=== PATIENT | male | born 1955 | race Caucasian/White ===

== ENCOUNTER 2018-06-25 06:42 | Observation (INO) ==
--- NOTE | 2018-06-25 06:53 | Emergency Department Note ---
Disposition Clinical Impression: ACS (acute coronary syndrome) Disposition: Admitted As Inpatient Chest Pain HPI - General Chief Complaint: ED Chest Pain Stated Complaint: chest pain Time Seen by Provider: 06/25/18 06:45 Source: patient Mode of arrival: ambulatory Limitations: no limitations Vital Signs Reviewed: Yes Nursing Notes Reviewed: Yes - History of Present Illness HPI Narrative: 62-year-old male presents with the chest pain. Patient stated the pain started at midnight (6.5 hours ago). It was a constant sharp aching in right side of chest. Associate with nausea and shortness breath. Patient stated that nausea is a resolved. He was given 4 baby aspirin when ambulance came. Pt had stress test a few years. No cardiac cath, no stents. Report back surgery two years ago. He was found blood clot in epidural space. Pt complaint: chest pain Onset (ago): hour(s) (6) Duration: constant Onset: during rest Pain Location: right chest - Related Data Home Medications Medication Instructions Recorded Confirmed Atorvastatin [Lipitor] 5 mg PO HS 06/25/18 06/25/18 Gabapentin [Gralise] 300 mg PO TID 06/25/18 06/25/18 Insulin Glargine [Lantus] 30 units SQ DAILY 06/25/18 06/25/18 Insulin Regular Human [Humulin R] 30 units SQ BID 06/25/18 06/25/18 Lisinopril [Zestril] 30 mg PO DAILY 06/25/18 06/25/18 Omeprazole [PriLOSEC] 20 mg PO BID 06/25/18 06/25/18 Allergies Allergy/AdvReac Type Severity Reaction Status Date / Time Penicillins Allergy Rash Verified 06/25/18 06:47 Constitutional: Denies: fever, chills Eyes: Denies: eye pain ENT ED: Denies: ear pain Cardiovascular: Reports: chest pain Respiratory: Denies: cough Gastrointestinal: Reports: nausea. Denies: abdominal pain Genitourinary: Denies: urgency Musculoskeletal: Denies: back pain Integumentary: Denies: rash Neurological: Denies: headache Psychiatric: Denies: anxiety Endocrine: Denies: fatigue Hematological/Lymphatic: Denies: easy bleeding Allergic/Immunologic: Denies: facial swelling Physical Exam - General Limitations: no limitations General appearance: alert - Head Head exam: atraumatic - Eye Eye exam: Present: normal appearance - ENT ENT exam: normal exam - Neck Neck exam: Present: normal inspection - Chest Chest inspection: Present: normal inspection - Respiratory Respiratory exam: Present: normal lung sounds bilaterally - Cardiovascular Cardiovascular exam: Present: regular rate - Abdominal Exam Abdominal exam: Present: soft, tenderness Abdominal tenderness: Present: epigastrium - Extremities Exam Extremities exam: Present: normal inspection, full ROM. Absent: tenderness - Back Exam Back exam: Present: normal inspection, full ROM. Absent: tenderness - Neurological Exam Neurological exam: Present: alert, oriented X3 - Psychiatric Psychiatric exam: Present: normal affect, normal mood - Skin Skin exam: Present: warm, intact Course Vital Signs O2 Sat by Pulse Oximetry 100 06/25/18 06:49 Temperature 98.6 F 06/25/18 10:32 Pulse Rate 81 06/25/18 10:32 Respiratory Rate 16 06/25/18 10:32 Blood Pressure 132/77 06/25/18 10:32 O2 Sat by Pulse Oximetry 98 06/25/18 10:32 Oxygen Delivery Oxygen Delivery Room Air Chest Pain - [facility] Narrative Medical decision making narrative: 62 year old male with history of hypertension and diabetes. Presents with sudden onset chest pain since 12 am this morning. Pt described it as constant sharp and pressure type pain in right side chest. associate with nausea and shortness of breath. No vomiting. No cough. No chills and fever. History of GERD, back surgery and "blood clot in epidural area". Not on blood thinner. Pt took 4 baby ASA this morning. Reported improved nausea. EKG mild elevation ST in V2, no old EKG. chest xray: no acute change. negative D-dimer and troponin. Pt's Heart score is 4. Pt will be admitted to hospital for observation. Spoke with Refractive Surgeon Dr. Galdamez. He is notified the consult for this patient. Chest X-Ray 06/25/18 06:46 IMPRESSION: No acute process. D/ / Mohamud Truong MD / Mohamud Truong MD Interpreting Provider: Mohamud Truong MD 0719 hours: He said no chest pain against regular nitroglycerin trial he had his baby aspirin earlier. Still waiting on old EKG from [place]. 0830 hrs.: D-dimer is normal limits of 10 times his age. He did not get any change with the nitroglycerin, giving him morphine for pain and admit. - Lab Data Lab results reviewed: Yes I reviewed the patient's lab results. Result diagrams: 06/25/18 06:54 06/25/18 06:54 Lab Results 06/25/18 06/25/18 06/25/18 Range/Units 06:54 06:54 06:54 WBC 12.5 H (4.3-11.1) K/mcL RBC 4.62 (4.19-5.50) M/mcL Hgb 14.1 (12.9-16.9) g/dL Hct 42.8 (37.5-50.1) % MCV 92.6 (83.0-100.0) fL MCH 30.5 (28.0-33.3) pg MCHC 32.9 (31.6-35.5) g/dL RDW 13.5 (11.5-14.5) % Plt Count 211 (140-400) K/mcL MPV 10.0 (9.4-12.4) fL Immature Gran % 0.4 (0-4) % Seg Neutrophils % 79.3 % Lymphocytes % 12.8 % Monocytes % 5.0 % Eosinophils % 2.1 % Basophils % 0.4 % Neutrophils # 10.0 H (1.6-8.9) K/mcL Lymphocytes # 1.6 (0.6-4.6) K/mcL Monocytes # 0.6 (0.0-1.3) K/mcL Eosinophils # 0.3 (0.0-0.6) K/mcL Basophils # 0.1 (0.0-0.2) K/mcL D-Dimer (0-500) ng/mLFEU Sodium 139 (136-145) mEq/L Potassium 4.1 (3.5-5.1) mEq/L Chloride 102 (98-107) mEq/L Carbon Dioxide 27 (23-29) mEq/L BUN 24 H (8-23) mg/dL Creatinine 1.42 H (0.70-1.30) mg/dL Est GFR ( Amer) > 60 (> 60) Est GFR (Non-Af Amer) 50 L (> 60) BUN/Creatinine Ratio 17 (6-26) Glucose 134 H (70-105) mg/dL Calculated Osmolality 294 (280-300) Calcium 9.4 (8.6-10.3) mg/dL Total Bilirubin 0.6 (0.3-1.0) mg/dL AST 20 (13-39) Units/L ALT 24 (7-52) Units/L Alkaline Phosphatase 82 (34-104) Units/L Troponin I < 0.03 (< 0.04) ng/mL Serum Total Protein 7.5 (6.4-8.9) g/dL Albumin 4.4 (3.5-5.7) g/dL Globulin 3.1 (2.4-3.5) g/dL Albumin/Globulin Ratio 1.4 (1.1-2.2) Lipase 7 L (11-82) Units/L Urine Osmolality (300-1090) mOsm/kg 06/25/18 06/25/18 Range/Units 06:56 09:04 WBC (4.3-11.1) K/mcL RBC (4.19-5.50) M/mcL Hgb (12.9-16.9) g/dL Hct (37.5-50.1) % MCV (83.0-100.0) fL MCH (28.0-33.3) pg MCHC (31.6-35.5) g/dL RDW (11.5-14.5) % Plt Count (140-400) K/mcL MPV (9.4-12.4) fL Immature Gran % (0-4) % Seg Neutrophils % % Lymphocytes % % Monocytes % % Eosinophils % % Basophils % % Neutrophils # (1.6-8.9) K/mcL Lymphocytes # (0.6-4.6) K/mcL Monocytes # (0.0-1.3) K/mcL Eosinophils # (0.0-0.6) K/mcL Basophils # (0.0-0.2) K/mcL D-Dimer 406 (0-500) ng/mLFEU Sodium (136-145) mEq/L Potassium (3.5-5.1) mEq/L Chloride (98-107) mEq/L Carbon Dioxide (23-29) mEq/L BUN (8-23) mg/dL Creatinine (0.70-1.30) mg/dL Est GFR ( Amer) (> 60) Est GFR (Non-Af Amer) (> 60) BUN/Creatinine Ratio (6-26) Glucose (70-105) mg/dL Calculated Osmolality (280-300) Calcium (8.6-10.3) mg/dL Total Bilirubin (0.3-1.0) mg/dL AST (13-39) Units/L ALT (7-52) Units/L Alkaline Phosphatase (34-104) Units/L Troponin I (< 0.04) ng/mL Serum Total Protein (6.4-8.9) g/dL Albumin (3.5-5.7) g/dL Globulin (2.4-3.5) g/dL Albumin/Globulin Ratio (1.1-2.2) Lipase (11-82) Units/L Urine Osmolality 791 (300-1090) mOsm/kg - Radiology Data Radiology results reviewed: Yes I reviewed the patient's radiology results. HISTORY: ORDERING SYSTEM PROVIDED HISTORY: chest pain Initial exam FINDINGS: The lungs are without acute focal process. There is no effusion or pneumothorax. The cardiomediastinal silhouette is without acute process. The osseous structures are without acute process. XR/XR chest 2V IMPRESSION: No acute process. D/ / Mohamud Truong MD / Mohamud Truong MD Interpreting Provider: Mohamud Truong MD Attestation Statement - Attestation Attestation: This documentation is done with the assistance of Dragon dictation. Despite efforts made to ensure accuracy, there may be inaccuracies in multimedia artist or spelling and typographical errors. I have personally performed a face to face evaluation on this patient. I have reviewed and agree with the care plan. History and Exam by me shows: Patient seen and evaluated today presents from the urgent care they were closely came here had chest pain for little over 6 hours. Pressure sensation, at this point. No EKG to compare to here [facility] chest x-ray cardiac workup pain-free at this time and reassess. Had 4 baby aspirin this morning.
[2018-06-25 07:07] LABS: Basophils # 0.1 K/mcL (0.0-0.2); Basophils % 0.4 %; Eosinophils # 0.3 K/mcL (0.0-0.6); Eosinophils % 2.1 %; Hematocrit 42.8 % (37.5-50.1); Hemoglobin 14.1 g/dL (12.9-16.9); Immature Granulocytes % 0.4 % (0-4); Lymphocytes # 1.6 K/mcL (0.6-4.6); Lymphocytes % 12.8 %; Mean Corpuscular HGB Conc 32.9 g/dL (31.6-35.5); Mean Corpuscular Hemoglobin 30.5 pg (28.0-33.3); Mean Corpuscular Volume 92.6 fL (83.0-100.0); Monocytes # 0.6 K/mcL (0.0-1.3); Platelet Count 211 K/mcL (140-400); Red Blood Count 4.62 M/mcL (4.19-5.50); Red Cell Distribution Width 13.5 % (11.5-14.5); Segmented Neutrophils % 79.3 %
[2018-06-25 07:27] LABS: Alanine Aminotransferase 24 Units/L (7-52); Albumin 4.4 g/dL (3.5-5.7); Albumin/Globulin Ratio 1.4 (1.1-2.2); Alkaline Phosphatase 82 Units/L (34-104); Aspartate Amino Transferase 20 Units/L (13-39); BUN/Creatinine Ratio 17 (6-26); Bilirubin,Total 0.6 mg/dL (0.3-1.0); Blood Urea Nitrogen 24 mg/dL (8-23); Calcium 9.4 mg/dL (8.6-10.3); Carbon Dioxide 27 mEq/L (23-29); Chloride 102 mEq/L (98-107); Globulin 3.1 g/dL (2.4-3.5); Glucose 134 mg/dL (70-105); Osmolality,Calculated 294 (280-300); Potassium 4.1 mEq/L (3.5-5.1); Sodium 139 mEq/L (136-145); Total Protein 7.5 g/dL (6.4-8.9); Troponin I < 0.03 ng/mL (< 0.04); eGFR For Non-African Americans 50 (> 60)
[2018-06-25] MEDS ORDERED: Nitroglycerin 0.4 MG TAB.SUBL SL PRN (07:30)
[2018-06-25] MEDS: 0.9 % Sodium Chloride 1,000 ML IVC SCH ×2 (07:47→18:26)
[2018-06-25] MEDS ORDERED: Pantoprazole 40 MG VIAL IVP ONE (08:18)
[2018-06-25] MEDS ORDERED: GI Cocktail 40 ML EACH PO ONE (08:23)
[2018-06-25] MEDS ORDERED: *HR* Morphine 2 MG/ML SYRINGE IVP PRN (08:36)
[2018-06-25] MEDS ORDERED: Naloxone 0.4 MG/ML INJ IVP PRN (09:01)
--- NOTE | 2018-06-25 09:11 | Internal Med History&Physical ---
Date of Encounter: 06/25/18 Time of Encounter: 09:07 Internal Medicine - H&P: HPI Chief complaint: chest pain Admitted From: Home Plans for Post Hospital Care: Home History of present illness: Mr. Ochoa is a 62 year old male with history of diabetes and hypertension presented to the emergency department with complaint of chest pain. As per patient his chest pain started at midnight and woke him up from sleep. He characterizes the pain as constant, sharp, nonradiating, 7 out of 10 pain located in the middle of his chest. Pain is aggravated by deep breathing and exertion along with movement, denies pain on palpation. Never had pain like this before. He is extremely active and is currently building a house, denies any heavy lifting or recent chest trauma. Has had no recent upper respiratory tract infections, denies orthopnea or PND, has had no leg swelling or calf tenderness, or sick contacts. Chest pain is not associated with diaphoresis or fever or chills. However he does complain of mild nausea. He denies shortness of breath however he feels as though his breathing is shallow due to chest pain on deep inspiration. He denies prolonged immobilization, no history of cancers, no prolonged travel recently. Denies any cardiac history has never had a cardiac catheter nor stents placed. Had did have a stress test at the [facility] in [place] however reports that the results were negative. He does not take aspirin every day however does report compliance to rest of his medication. He moved from [place] last June and has not had any medical problems so he has not followed up with any doctors. Does report that he does have kidney insufficiency however is unsure as to how bad. He reports that his kidney insufficiency occurred after he had ureteral torsion a few years ago that required extensive surgery. He received 4 baby aspirins in the ambulance and reports that his nausea has resolved since then. While in the emergency department EKG showed normal sinus rhythm, left axis deviation, with questionable ST-T changes in the anterolateral leads so he was endorsed for admission for further evaluation of his chest pain. Past Med Surg Social Fam HX - Past Medical History Medical history: diabetes, hypertension, renal disease Psychiatric history: no psych history - Past Surgical History Additional surgical history: right ureteral revision. discectomy neck. laminectomy back w/complications and blood clot next to spine - Social History Smoking Status: Never smoker Smokeless Tobacco Status: No Alcohol use: none Drug use: none Internal Medicine - H&P: Meds Atorvastatin [Lipitor] 5 mg PO HS 06/25/18 [History] Gabapentin [Gralise] 300 mg PO TID 06/25/18 [History] Insulin Glargine [Lantus] 30 units SQ DAILY 06/25/18 [History] Insulin Regular Human [Humulin R] 30 units SQ BID 06/25/18 [History] Lisinopril [Zestril] 30 mg PO DAILY 06/25/18 [History] Omeprazole [PriLOSEC] 20 mg PO BID 06/25/18 [History] Allergy/AdvReac Type Severity Reaction Status Date / Time Penicillins Allergy Rash Verified 06/25/18 06:47 All Systems PM: A 10-system review of systems was performed and is negative for pertinent findings except as documented above in the HPI. - Constitutional Vitals: Temp Pulse Resp BP Pulse Ox 98.7 F 82 18 130/77 96 06/25/18 06:51 06/25/18 08:00 06/25/18 08:00 06/25/18 08:00 06/25/18 08:00 Exam: General: Patient is alert, oriented, no acute distress, obese, speaks in full sentences Head: atraumatic, normocephalic, Eye: normal appearance, PERRL, no scleral icterus, no conjunctival injection ENT: mucous membranes moist, normal external ear exam Neck: normal inspection, trachea midline, full ROM, no carotid bruits Chest: normal inspection, symmetric chest rise Respiratory: Distant breath sounds secondary to body habitus Good respiratory effort. Bilateral breath sounds are clear without wheezing, crackles, or rhonchi. Cardiovascular: Distant heart sounds secondary to body habitus Regular rate and rhythm. s1 and s2 No clicks, rubs, gallops, or murmors. Abdomen: Bowel sounds present normoactive x-4 quadrants. Abdomen is soft, nondistended. no Epigastric tenderness. No guarding or rebound. No organomegaly noted, obese musculoskeletal: Spontaneously moving all extremities. no edema, no calf tenderness, no calf discoloration Skin: warm, dry, intact. Neuro: Alert and oriented x 3 no focal deficit Psych: Patient's affect is normal Internal Med - H&P Results - Labs CBC & Chem 7: 06/25/18 06:54 06/25/18 06:54 Labs: Short CBC 06/25/18 Range/Units 06:54 WBC 12.5 H (4.3-11.1) K/mcL Hgb 14.1 (12.9-16.9) g/dL Hct 42.8 (37.5-50.1) % Plt Count 211 (140-400) K/mcL Neutrophils # 10.0 H (1.6-8.9) K/mcL BMP 06/25/18 06:54 Sodium 139 Potassium 4.1 Chloride 102 Carbon Dioxide 27 BUN 24 H Creatinine 1.42 H Glucose 134 H Calcium 9.4 Cardiac Enzymes 06/25/18 Range/Units 06:54 Troponin I < 0.03 (< 0.04) ng/mL Liver Function 06/25/18 Range/Units 06:54 Total Bilirubin 0.6 (0.3-1.0) mg/dL AST 20 (13-39) Units/L ALT 24 (7-52) Units/L Alkaline Phosphatase 82 (34-104) Units/L Albumin 4.4 (3.5-5.7) g/dL - EKG Data -: EKG Interpreted by Myself EKG shows normal: sinus rhythm (Left axis deviation, nonspecific ST-T changes in the anterolateral leads) - EKG Data Prior EKG available for review: no - Impressions ITS Impressions Chest X-Ray 06/25/18 06:46 IMPRESSION: No acute process. D/ / Mohamud Truong MD / Mohamud Truong MD Interpreting Provider: Mohamud Truong MD - Assessment and Plan (1) Chest pain, rule out acute myocardial infarction Current Visit: Yes Status: Acute Assessment and plan: Chest pain rule out ACS Doubt PE, d-dimer is negative, Wells criteria 0, not tachycardic, tachypnic or hypoxic telemetry Follow serial troponin/CK-MB/EKG q6h Transthoracic echocardiograph to identify regional wall motion abnormalities and assess LV function cardiology was consulted in the ED will follow recommendations. NPO for possible Stress test/LHC [facility] was [facility] with [facility] continue with ASA 81 mg daily NTG Q5M PRN for chest pain Coreg 3.125 twice a day Continue with statins lipid panel pain control with IV morphine as needed (2) ARF (acute renal failure) Current Visit: Yes Status: Acute Assessment and plan: Creatinine 1.4 no baseline [facility]bt[facility] Renal ultrasound UA, urine electrolytes and urine osmolality Avoid nephrotoxic medications Hold lisinopril for now Continue with gentle hydration Strict intake and output Qualifiers: Acute renal failure type: unspecified Qualified Code(s): N17.9 - Acute kidney failure, unspecified (3) Leukocytosis Current Visit: Yes Status: Acute Assessment and plan: Cytosis of 12.5 Chest x-ray without any acute process UA is pending Currently does not meet any SIRS criteria so will hold off antibiotics and follow pending labs If the patient develops sirs criteria we will consider antibiotics. Qualifiers: Leukocytosis type: unspecified Qualified Code(s): D72.829 - Elevated white blood cell count, unspecified (4) Obesity (BMI 35.0-39.9 without comorbidity) Current Visit: Yes Status: Acute Assessment and plan: Was counseled on nutrition (5) IDDM (insulin dependent diabetes mellitus) Current Visit: Yes Status: Acute Assessment and plan: Continuous home long-acting insulin Sliding-scale and adjust as per fingersticks A1c (6) DVT prophylaxis Current Visit: Yes Status: Acute Assessment and plan: Heparin subcutaneous - Time Spent With Patient Total time spent is greater than 50% in coordination of care (as documented) at patient's floor/unit and/or counseling patient:
[2018-06-25] MEDS ORDERED: Dextrose Gel 15 GM/37.5 ML TUBE PO PRN ×2 (09:53)
[2018-06-25] MEDS ORDERED: D5% in Water 1,000 ML IVC PRN (09:53)
[2018-06-25] MEDS ORDERED: *HR* Dextrose 50 % in Water (Syg) 50 ML SYRINGE IVP PRN (09:53)
[2018-06-25 11:11] LABS: Chloride,Urine 199 mEq/L; Potassium,Urine 73.6 mEq/L; Sodium, Urine 161.4 mEq/L
[2018-06-25 11:13] LABS: Amphetamine Screen,Urine Negative ng/mL (Cutoff=1000); Barbiturate Screen,Urine Negative ng/mL (Cutoff=200); Benzodiazepines Screen,Urine Negative ng/mL (Cutoff=200); Cannabinoid Screen,Urine Negative ng/mL (Cutoff = 50); Cocaine Screen,Urine Negative ng/mL (Cutoff= 300); Opiate Screen,Urine Positive ng/mL (Cutoff=300); Phencyclidine Screen,Urine Negative ng/mL (Cutoff=25)
[2018-06-25] MEDS: *HR* Morphine 2 MG/ML SYRINGE IVP PRN ×2 (13:59→20:46)
[2018-06-25] MEDS: *HR* Heparin 5,000 UNIT/ML VIAL SQ SCH ×2 (14:01→20:47)
[2018-06-25] MEDS: Insulin LISPRO 300 UNITS/3 ML VIAL SQ SCH ×2 (14:02→18:29)
[2018-06-25] MEDS: Gabapentin 300 MG CAPSULE PO SCH ×2 (14:02→20:48)
[2018-06-25] MEDS: Aspirin 81 MG TAB.CHEW PO SCH (14:02)
[2018-06-25] MEDS ORDERED: Perflutren Lipid Microsphere 1.3 ML in 0.9 % Sodium Chloride 8.7 ML IVP ONE (17:18)
--- NOTE | 2018-06-25 17:21 | Cardiology Consult Note ---
Date of Encounter: 06/25/18 Time of Encounter: 14:13 Assessment and Plan (1) Chest pain Current Visit: Yes Status: Acute clinically non-anginal or atypical, neg trop so far, no ischemic changes on current ECG - repeat ECG, one more trop - pending TTE for EF and RWMA - if dynamic ECG changes, consider inpatient stress test Qualifiers: Chest pain type: other chest pain Qualified Code(s): R07.89 - Other chest pain; R07.8 - Other chest pain (2) HTN (hypertension) Current Visit: Yes Status: Acute mild fluctuation. mgn per primary team. Qualifiers: Hypertension type: essential hypertension Qualified Code(s): I10 - Essential (primary) hypertension (3) IDDM (insulin dependent diabetes mellitus) Current Visit: Yes Status: Acute (4) Elevated serum creatinine Current Visit: Yes Status: Acute unclear ARNOL or CKD. repeat BMP am Discussion w patient/family: The assessment and plan as outlined above was discussed with the patient and/or family members who expressed understanding and agreement. All questions were answered. Thank you for involving us in the care of your patient. Please call with any questions. History of Present Illness Consult date: 06/25/18 Requesting physician: Cici Cagle Consult reason: cp Chief complaint: cp History of present illness: Mr. Ochoa is a 62 year old male ho HTN, DM, ?CKD. Consulted for cp. Acute onset of right sided sharp chest pain "under rib cage" since last night at rest (>12 hrs), moderate to severe, no radiation, constant, worsened by deep breath or upper body movement with short-lived dyspnea, not relieved by ASA or NTG, partial relief by morphine. No dizziness, palpitations. No prior episode. No ho angina on exertion. *In the middle of [employer] building house. ECG SR, LAD, late RWP, NS ST changes. Trop neg x2, DDimer wnl, Cr 1.4, WBC 12 Past Med Surg Social Fam HX - Past Medical History Medical history: diabetes, hypertension, renal disease Psychiatric history: no psych history - Past Surgical History Additional surgical history: right ureteral revision. discectomy neck. laminectomy back w/complications and blood clot next to spine - Social History Smoking Status: Never smoker Smokeless Tobacco Status: No Alcohol use: none Drug use: none - Family History Father Age at : 60 Cause of : mi - Additional Family History Additional family history: non-contributory Medications and Allergies Atorvastatin [Lipitor] 5 mg PO HS 06/25/18 [History] Gabapentin [Gralise] 300 mg PO TID 06/25/18 [History] Insulin Glargine [Lantus] 30 units SQ DAILY 06/25/18 [History] Insulin Regular Human [Humulin R] 30 units SQ BID 06/25/18 [History] Omeprazole [PriLOSEC] 20 mg PO BID 06/25/18 [History] RX: Lisinopril [Zestril] 30 mg PO DAILY 06/25/18 [History] Allergy/AdvReac Type Severity Reaction Status Date / Time Penicillins Allergy Rash Verified 06/25/18 06:47 All Systems Review: The remainder of the systems were reviewed and are negative - Cardiovascular Cardiovascular: as per HPI - Hematological/Lymphatic Hematologic/Lymphatic: no easy bleeding Physical Examination Other: General: NAD, AAO, cogent HEENT: anicteric Neck: no JVD, no bruits Chest: CTA B/L, no W/R/C, vague R-mid chest wall tenderness Heart: RR, S1/S2, no S3/S4, no M/G/R Abdominal: BS +, soft, ND, NT Peripheral Pulses: radial pulse 2+ B/L, DP 2+ B/L Skin/Extremities: no cyanosis, no LE edema Neurological: grossly non-focal. Results 06/25/18 06:54 06/25/18 06:54 Lab Results 06/25/18 06/25/18 06/25/18 06:54 06:54 06:54 WBC 12.5 H Hgb 14.1 Hct 42.8 Plt Count 211 D-Dimer Sodium 139 Potassium 4.1 Chloride 102 Carbon Dioxide 27 BUN 24 H Creatinine 1.42 H Glucose 134 H Calcium 9.4 Total Bilirubin 0.6 AST 20 ALT 24 Alkaline Phosphatase 82 Troponin I < 0.03 Lipase 7 L 06/25/18 06/25/18 06:56 12:53 WBC Hgb Hct Plt Count D-Dimer 406 Sodium Potassium Chloride Carbon Dioxide BUN Creatinine Glucose Calcium Total Bilirubin AST ALT Alkaline Phosphatase Troponin I < 0.03 Lipase - Imaging and Cardiology Chest Xray: report reviewed Other Results: Tele reviewed, no events - EKG Interpretation EKG results cardiology: personally reviewed Consult Discharge Plan - Plan [facility]: [facility]Primary Care Provider[facility] -
[2018-06-25] MEDS ORDERED: Insulin LISPRO 300 UNITS/3 ML VIAL SQ SCH (21:00)
[2018-06-25] MEDS ORDERED: 0.9 % Sodium Chloride 1,000 ML IVC SCH (22:00)
[2018-06-26 05:13] LABS: Basophils % 0.3 %; Eosinophils # 0.2 K/mcL (0.0-0.6); Eosinophils % 2.8 %; Hematocrit 38.7 % (37.5-50.1); Hemoglobin 12.6 g/dL (12.9-16.9); Immature Granulocytes % 0.3 % (0-4); Lymphocytes # 1.8 K/mcL (0.6-4.6); Lymphocytes % 26.5 %; Mean Corpuscular HGB Conc 32.6 g/dL (31.6-35.5); Mean Corpuscular Hemoglobin 30.7 pg (28.0-33.3); Mean Corpuscular Volume 94.2 fL (83.0-100.0); Mean Platelet Volume 10.3 fL (9.4-12.4); Monocytes # 0.4 K/mcL (0.0-1.3); Monocytes % 5.8 %; Neutrophils # 4.4 K/mcL (1.6-8.9); Platelet Count 178 K/mcL (140-400); Red Blood Count 4.11 M/mcL (4.19-5.50); Red Cell Distribution Width 13.6 % (11.5-14.5); Segmented Neutrophils % 64.3 %
[2018-06-26] MEDS: *HR* Heparin 5,000 UNIT/ML VIAL SQ SCH (05:16)
[2018-06-26 05:41] LABS: BUN/Creatinine Ratio 16 (6-26); Blood Urea Nitrogen 22 mg/dL (8-23); Calcium 8.3 mg/dL (8.6-10.3); Carbon Dioxide 24 mEq/L (23-29); Chloride 104 mEq/L (98-107); Cholesterol 124 mg/dL (< 200); Glucose 207 mg/dL (70-105); HDL Cholesterol 42 mg/dL (40-59); LDL Cholesterol,Calculated 64 mg/dL (0-99); Osmolality,Calculated 287 (280-300); Potassium 4.1 mEq/L (3.5-5.1); Sodium 134 mEq/L (136-145); Triglycerides 91 mg/dL (< 150); eGFR For Non-African Americans 54 (> 60)
[2018-06-26 05:46] LABS: Thyroid Stimulating Hormone 0.896 mcIU/mL (0.340-5.600)
[2018-06-26] MEDS ORDERED: Insulin DETEMIR 100 UNIT/ML X5UNITS SQ SCH ×2 (09:00→09:45)
[2018-06-26] MEDS: Insulin LISPRO 300 UNITS/3 ML VIAL SQ SCH ×2 (09:11→12:05)
[2018-06-26] MEDS: Gabapentin 300 MG CAPSULE PO SCH (09:40)
[2018-06-26] MEDS: Aspirin 81 MG TAB.CHEW PO SCH (09:41)
--- NOTE | 2018-06-26 11:14 | Electrocardiograph Report ---
[place] [id number] Test Date: 2018-06-25 Pat Name: Theodore Ochoa Department: 113 Room: 3B44 Gender: M Concrete Worker: : 1955 Requested By: Cici Cagle Order Number: [id number] Reading MD: Jeannie Bonilla Measurements Intervals [place] Rate: 78 P: 23 CT: 176 QRS: -22 QRSD: 110 T: 32 QT: 367 QTc: 400 Interpretive Statements SINUS RHYTHM BORDERLINE LEFT AXIS DEVIATION [QRS AXIS < -20] POSSIBLE RIGHT VENTRICULAR CONDUCTION DELAY [RSR (QR) IN V1/V2] Electronically Signed On 06-26-2018 11:12:59 EDT by Jeannie Bonilla
[2018-06-26 11:40] LABS: Estimated Average Glucose 220 mg/dl; Hemoglobin A1C 9.3 %
[2018-06-26 12:00] VITALS: BP 106/67
--- NOTE | 2018-06-26 12:02 | Discharge Summary ---
- NOTES TO OUTPATIENT PROVIDER Notes to Outpatient Provider: Patient was hospitalized here after presenting with chest pain. He was evaluated by cardiology and an echocardiogram done. Troponins have been negative. Echocardiogram does not show any wall motion abnormalities. We will be discharged today and will follow up with cardiology as outpatient for possible stress test. Patient also has elevation in creatinine at 1.42. Unknown baseline. Recommend outpatient follow-up with recheck of basic panel. Creatinine today is 1.34. Orders not resulted at time of discharge: Pending orders 06/25/18 09:37 EKG [ECG 12 lead ECG] [ECG] Stat 06/25/18 16:56 ECG 12 lead ECG [ECG] Stat Date of Encounter: 06/26/18 Time of Encounter: 12:00 - Discharge Diagnosis (1) Chest pain, rule out acute myocardial infarction Priority: Primary Status: Acute (2) ARF (acute renal failure) Priority: Secondary Status: Acute Qualifiers: Acute renal failure type: unspecified Qualified Code(s): N17.9 - Acute kidney failure, unspecified (3) Leukocytosis Priority: Secondary Status: Resolved Qualifiers: Leukocytosis type: unspecified Qualified Code(s): D72.829 - Elevated white blood cell count, unspecified (4) Obesity (BMI 35.0-39.9 without comorbidity) Priority: Secondary Status: Acute (5) DVT prophylaxis Priority: Secondary Status: Acute (6) IDDM (insulin dependent diabetes mellitus) Priority: Secondary Status: Acute Hospital course: Mr. Ochoa is a 62 year old male Patient with history of essential hypertension who was hospitalized here after presenting with chest pain. He had some nonspecific EKG changes. He was evaluated by cardiology and an echocardiogram done. Troponins have been negative. Echocardiogram does not show any wall motion abnormalities. We will be discharged today and will follow up with cardiology as outpatient for possible stress test. Patient also has elevation in creatinine at 1.42. Unknown baseline. Recommend outpatient follow-up with recheck of basic panel. Creatinine today is 1.34. Discharge discussed with: patient - Time Spent with Patient Total time spent providing and/or coordinating discharge services: Time spent: Less than 30 minutes (20 min) - Discharge Medications Prescriptions: Continued Omeprazole [PriLOSEC] 20 mg PO BID Lisinopril [Zestril] 40 mg PO DAILY Insulin Glargine,Hum.rec.anlog [Lantus Solostar] 30 units SQ BID Insulin ASPART [Novolog Flexpen] 10 units SQ BID Gabapentin [Neurontin] 300 mg PO TID Docusate [Colace] 200 mg PO BID PRN PRN Reason: Constipation Atorvastatin [Lipitor] 20 mg PO HS Home Medications: Atorvastatin [Lipitor] 20 mg PO HS 06/25/18 [History] Docusate [Colace] 200 mg PO BID PRN 06/25/18 [History] Gabapentin [Neurontin] 300 mg PO TID 06/25/18 [History] Insulin ASPART [Novolog Flexpen] 10 units SQ BID 06/25/18 [History] Insulin Glargine,Hum.rec.anlog [Lantus Solostar] 30 units SQ BID 06/25/18 [History] Lisinopril [Zestril] 40 mg PO DAILY 06/25/18 [History] Omeprazole [PriLOSEC] 20 mg PO BID 06/25/18 [History] Allergies/Adverse Reactions: Allergy/AdvReac Type Severity Reaction Status Date / Time Penicillins Allergy Rash Verified 06/25/18 06:47 Date of admission: 06/25/18 09:21 [facility] care physician: [facility] Consults: 06/25/18 09:05 Consult to Cardiology [CONS] Stat Comment: Consulting Provider: Cardiology Buffy Reason for Consult: chest pain rule out NM Call Completed: No Discharging clinician: Ashvin Dumont Anticipated date of discharge: 06/26/18 - Constitutional Vitals: Temp Pulse Resp BP Pulse Ox 97.6 F 70 15 143/86 95 06/26/18 07:00 06/26/18 07:00 06/26/18 07:00 06/26/18 07:00 06/26/18 07:00 General appearance: Present: cooperative, A&O X 3, answers questions appropriately Exam: . - Respiratory Respiratory exam: Present: CTAB. Absent: accessory muscle use, rales, rhonchi, wheezes - Cardiovascular Cardiovascular exam: Present: RRR, +S1, +S2. Absent: diastolic murmur, gallop, rubs, systolic murmur - Extremities Exam Extremities exam: Present: warm, radial pulses palpable and symmetrical. Absent: calf tenderness, cyanotic, pedal edema - Patient Status Disposition: Home, Self-Care Condition: Good Functional capacity at discharge: independent ambulation Overall status at discharge: patient is progressing back to baseline - Ambulatory Orders Ambulatory Orders: Basic Metabolic Panel [CHEM] Time Frame: 1 Week, Facility: [facility], Location: Lab - Discharge Instructions Instructions: Chest Pain (DC), Acute Kidney Injury (DC) Follow Up With: [facility] [Primary Care Provider] - (In 1-2 weeks) Ang Galdamez MD [Non-Partnered Physician] - (for follow up and stress test as outpatient) - Diet and Activity Activity: increase activity as tolerated Diet: low fat, low cholesterol
--- NOTE | 2018-06-26 12:29 | Cardiology Progress Note ---
Date of Encounter: 06/26/18 Time of Encounter: 10:30 Assessment and Plan (1) Chest pain Current Visit: Yes Status: Acute Atypical chest pain. Right sided pain increasing with deep breaths. EKG shows NSR with no acute ST changes. Troponin negative x3. TTE shows preserved EF and no WMA. Pt reports DIY home building project and some strenous activity. He agrees to continue to monitor. Continue asa, statin, bb. F/u out-pt with PCP. Call with questions. Qualifiers: Chest pain type: other chest pain Qualified Code(s): R07.89 - Other chest pain; R07.8 - Other chest pain Discussion w patient/family: The assessment and plan as outlined above was discussed with the patient and/or family members who expressed understanding and agreement. All questions were answered. Thank you for involving us in the care of your patient. Please call with any questions. Subjective Principal diagnosis: atypical chest pain Interval history: Pt reports chest pain went away on its own. He was pain free when he woke. Objective Vital Signs, Last 4 Hours Temp Pulse Resp BP Pulse Ox 06/26/18 11:49 98.0 F 68 17 106/67 97 General: Conversant, No Apparent Distress HEENT: Atraumatic, Normocephaly, Mucus Membranes Moist Neck: No JVD, Normal carotid pulses Cardiac: Reg Rate and Rhythm, Normal S1 and S2, No Murmur Lungs: Normal Breath Sounds, No Wheeze, Rales, Rhonchi Neuro: Alert and responsive, No focal deficits noted Abdomen: Soft, Non-Tender Skin: No rashes noted on visualized skin Musculoskeletal: No Chest Wall Tenderness Extremities: No Clubbing, No Cyanosis, No Edema, Normal Pulses Results 06/26/18 04:37 06/26/18 04:37 Lab Results 06/25/18 06/25/18 06/26/18 12:53 18:33 04:37 WBC 6.8 Hgb 12.6 L D Hct 38.7 Plt Count 178 Sodium Potassium Chloride Carbon Dioxide BUN Creatinine Glucose Calcium Troponin I < 0.03 < 0.03 TSH 06/26/18 04:37 WBC Hgb Hct Plt Count Sodium 134 L Potassium 4.1 Chloride 104 Carbon Dioxide 24 BUN 22 Creatinine 1.34 H Glucose 207 H Calcium 8.3 L Troponin I TSH 0.896 - Imaging and Cardiology Echo: report reviewed - EKG Interpretation EKG results cardiology: personally reviewed Consult Discharge Plan - Plan Instructions: Chest Pain (DC), Acute Kidney Injury (DC) Referrals: Ang Galdamez MD [Non-Partnered Physician] - (for follow up and stress test as outpatient) [facility] [Primary Care Provider] - (In 1-2 weeks)
--- NOTE | 2018-06-28 13:55 | Electrocardiograph Report ---
[facility] Test[facility] Test Date: 2018-06-25 Pat Name: Theodore Ochoa Department: [id number] Room: 3B44 Gender: M Sorting Supervisor: : [id number] Requested By: Adolfo Mitchell Order Number: [id number] Reading MD: Noble Palacio Measurements Intervals [place] Rate: 88 P: 67 FL: 169 QRS: -44 QRSD: 98 T: 68 QT: 372 QTc: 451 Interpretive Statements Sinus rhythm Left axis deviation Abnormal R-wave progression, late transition ST elevation suggests acute pericarditis Electronically Signed On 06-28-2018 13:53:59 EDT by Noble Palacio
== END 2018-06-26 13:13 | disposition home or self-care (01) ==
LOC: EMEROOARM 06:42 → 3BNU 06:42 → SUATTDRO 09:21 → 3BNU 10:06
PROVIDERS: ADMIT Internal Medicine; ATTEND Internal Medicine